=== PATIENT | male | born 2000 | race African-American/Black ===

== ENCOUNTER 2021-02-01 00:55 | Emergency (ER) | payer SELFPAY ==
[~2021-02-01] VITALS: Ht 172.7 cm; Wt 65.8 kg
--- NOTE | 2021-02-01 00:55 | NUR ---
PT BIB [facility], PREBOOK. TAKEN TO CHAIR
[2021-02-01 00:57] VITALS: BP 123/76
[2021-02-01 01:10] VITALS: BP 123/76
--- NOTE | 2021-02-01 01:10 | NUR ---
NO NURSING INTERVENTIONS NEEDED
--- NOTE | 2021-02-01 01:11 | NUR ---
PATIENT BIB [facility]. PATIENT EXAMINED BY DR. GOYAL. PATIENT MEDICALLY CLEARED AND RELEASED IN CUSTODY IN STABLE CONDITION. ORIGINAL PRE-BOOK FORM GIVEN TO OFFICER UMANG.
== END 2021-02-01 01:11 ==
LOC: MED 00:55
DX: S01.81XA Laceration without foreign body of other part of head, initial encounter (principal); Z02.89 Encounter for other administrative examinations; V98.8XXA Other specified transport accidents, initial encounter; Y93.89 Activity, other specified; Y92.89 Other specified places as the place of occurrence of the external cause; Y99.8 Other external cause status
CPT/HCPCS: 99283